=== PATIENT | female | born 1955 | race African-American/Black ===

== ENCOUNTER 2021-09-17 14:44 | Emergency (ER) | payer MEDICARE ==
[~2021-09-17] VITALS: Ht 167.6 cm; Wt 136.0 kg
[2021-09-17 14:50] VITALS: BP 142/70
[2021-09-17 15:51] LABS: BASOPHILS % 0.8 % (0.0-2.0); EOSINOPHILS % 1.2 % (0.0-5.0); HEMATOCRIT. 39.9 % (36.0-48.0); HEMOGLOBIN. 12.9 g/dL (12.0-16.0); LYMPHOCYTES % 15.7 % (20.0-50.0); MEAN CORPUSCULAR VOLUME 83.4 fL (81.0-99.0); MEAN PLATELET VOLUME 8.4 fl (7.4-10.4); MONOCYTES % 7.2 % (2.0-8.0); NEUTROPHILS % 75.1 % (40.0-76.0); PLATELET 334 x1000/uL (130-400); RED BLOOD CELL COUNT 4.79 mill/uL (4.2-5.4); RED CELL DISTRIBUTION WIDTH 15.4 % (11.6-14.6)
[2021-09-17 15:54] LABS: CHLORIDE 105 mEq/L (98-107)
== END 2021-09-17 17:54 | disposition home or self-care (01) ==
LOC: ER 14:44
DX: R55 Syncope and collapse (principal); E11.65 Type 2 diabetes mellitus with hyperglycemia; I10 Essential (primary) hypertension; I44.0 Atrioventricular block, first degree
CPT/HCPCS: 36415; 71045; 80053; 83880; 84484; 85025; 99284; 99291

== ENCOUNTER 2024-03-18 20:56 | Inpatient (IN) | payer MEDICARE, MEDICAID ==
[~2024-03-18] VITALS: Ht 170.2 cm; Wt 167.8 kg
[~2024-03-18 20:56] MED LIST: CEL200 PO
[2024-03-18] MEDS ORDERED: CEFTRIAXONE 1GM/50ML 50 ML IV ONE (22:00)
[2024-03-18 22:49] LABS: BASOPHILS % 0.7 % (0.0-2.0); EOSINOPHILS % 0.8 % (0.0-5.0); HEMATOCRIT. 33.5 % (36.0-48.0); HEMOGLOBIN. 10.6 g/dL (12.0-16.0); LYMPHOCYTES % 9.9 % (20.0-50.0); MEAN CORPUSCULAR HEMOGLOBIN 26.2 pg (28.0-32.0); MEAN CORPUSCULAR HGB CONC 31.6 g/dL (31.0-37.0); MEAN CORPUSCULAR VOLUME 82.9 fL (81.0-99.0); MEAN PLATELET VOLUME 7.3 fl (7.4-10.4); MONOCYTES % 5.2 % (2.0-8.0); NEUTROPHILS % 83.4 % (40.0-76.0); PLATELET 501 x1000/uL (130-400); RED BLOOD CELL COUNT 4.04 mill/uL (4.2-5.4); RED CELL DISTRIBUTION WIDTH 16.8 % (11.6-14.6); WHITE BLOOD COUNT 18.3 x1000/uL (4.5-11.0)
[2024-03-18] MEDS: CEFTRIAXONE 1GM/50ML 50 ML IV NR (22:49)
[2024-03-18] MEDS: SODIUM CHLORIDE 0.9% 1,000 ML IV ONE (22:50)
[2024-03-18 22:52] LABS: CHLORIDE 105 mEq/L (98-107); POTASSIUM 4.7 mEq/L (3.5-5.1); SODIUM 137 mEq/L (136-145)
[2024-03-18 22:53] LABS: CARBON DIOXIDE 18 mEq/L (21-32)
[2024-03-18 22:58] LABS: CREATININE 1.1 mg/dL (0.6-1.0); GLUCOSE 103 mg/dL (70-105); UREA NITROGEN BLOOD 33 mg/dL (9-23)
[2024-03-18 23:00] LABS: ALANINE AMINOTRANSFERASE < 7 IU/L (10-49); ALBUMIN 3.1 g/dL (3.2-4.8); ASPARTATE AMINOTRANSFERASE 10 IU/L (<34)
[2024-03-18 23:01] LABS: BILIRUBIN DIRECT 0.1 mg/dL (<=3.0); BILIRUBIN TOTAL 0.3 mg/dL (0.1-1.0); PROTEIN TOTAL 7.6 g/dL (6.0-8.3); TROPONIN I HIGH SENSITIVITY < 4 ng/L (3.0-34)
[2024-03-18] MEDS: VANCOMYCIN 1000MG/250ML 250 ML IV SCH (23:35)
[2024-03-19] VITALS (52 sets, daily range): BP systolic 46–121; BP diastolic 25–87; PULSE 63–111; RESP 15–26; TEMP 34.725–36.9474; O2SAT 95–100
[2024-03-19] MEDS: SODIUM CHLORIDE 0.9% 500 ML IV ONE (00:13)
[2024-03-19] MEDS: SODIUM CHLORIDE 0.9% 1,000 ML IV ONE ×2 (00:13→03:05)
[2024-03-19 00:48] LABS: INR 1.1; PROTHROMBIN TIME 11.8 sec (9.6-11.0)
[2024-03-19] MEDS ORDERED: ACETAMINOPHEN 325MG TABLET PO PRN ×2 (03:00)
[2024-03-19] MEDS ORDERED: DOCUSATE SODIUM 100MG CAPSULE PO PRN (03:00)
[2024-03-19] MEDS ORDERED: MAGNESIUM/ALUMINUM HYDROXIDE/SIMETHICONE 30ML UDC PO PRN (03:00)
[2024-03-19] MEDS: MIDODRINE HCL 5MG TABLET PO SCH ×2 (03:05→17:28)
[2024-03-19] MEDS: MIDODRINE HCL 5MG TABLET PO NR (03:51)
[2024-03-19] MEDS: LEVOTHYROXINE SODIUM 88MCG TABLET PO SCH (07:10)
[2024-03-19] MEDS: NOREPINEPHRINE 8MG/250ML PMX 250 ML IV PRN (07:47)
[2024-03-19] MEDS: IPRATROPIUM/ALBUTEROL 0.5-3(2.5)MG/3ML NEB NEB SCH (08:00)
[2024-03-19] MEDS ORDERED: ATROPINE SULFATE 1MG/ML VIAL IV PRN (09:00)
[2024-03-19] MEDS: PANTOPRAZOLE SODIUM 40 MG/VIAL IV SCH (09:01)
[2024-03-19] MEDS: ENOXAPARIN 40MG/0.4ML SYR SUBCUT SCH (09:02)
[2024-03-19 09:51] LABS: HEMATOCRIT 34.7 % (36.0-48.0); HEMOGLOBIN 10.3 g/dL (12.0-16.0); MEAN CORPUSCULAR HEMOGLOBIN 25.8 pg (28.0-32.0); MEAN CORPUSCULAR HGB CONC 29.7 g/dL (31.0-37.0); MEAN CORPUSCULAR VOLUME 86.9 fL (81.0-99.0); PLATELET 548 x1000/uL (130-400); RED CELL DISTRIBUTION WIDTH 17.5 % (11.6-14.6); WHITE BLOOD COUNT 28.4 x1000/uL (4.5-11.0)
[2024-03-19 10:02] LABS: CHLORIDE 107 mEq/L (98-107); POTASSIUM 4.1 mEq/L (3.5-5.1); SODIUM 137 mEq/L (136-145)
[2024-03-19 10:03] LABS: CARBON DIOXIDE 13 mEq/L (21-32)
[2024-03-19 10:04] LABS: CALCIUM 8.8 mg/dL (8.7-10.4)
[2024-03-19 10:08] LABS: CREATININE 0.9 mg/dL (0.6-1.0); GLUCOSE 150 mg/dL (70-105); UREA NITROGEN BLOOD 27 mg/dL (9-23)
[2024-03-19] MEDS ORDERED: NALOXONE HCL 0.4MG/ML VIAL IV PRN (17:00)
[2024-03-19] MEDS: TRAMADOL 50MG TABLET PO PRN (17:32)
[2024-03-19] MEDS ORDERED: FURO-151 PO (21:59)
[2024-03-19] MEDS ORDERED: LEVO88TA7 PO (21:59)
[2024-03-19] MEDS ORDERED: METO25TA6 PO (21:59)
[2024-03-19] MEDS ORDERED: ERGO1250 PO (21:59)
[2024-03-19] MEDS ORDERED: CLOP75TA33 PO (21:59)
[2024-03-19] MEDS ORDERED: METF-414 PO (21:59)
[2024-03-19] MEDS ORDERED: CELE-116 PO (21:59)
[2024-03-19] MEDS ORDERED: SIMV-46 PO (21:59)
[2024-03-19] MEDS ORDERED: POLY510P31 PO (21:59)
[2024-03-19] MEDS ORDERED: D-ME473S50 PO (21:59)
[2024-03-19] MEDS ORDERED: LISI2.5T47 PO (21:59)
[2024-03-19] MEDS ORDERED: ASPI-1160 PO (21:59)
[2024-03-19] MEDS ORDERED: METH4TAB95 PO (21:59)
[2024-03-19] MEDS ORDERED: MELO-106 PO (21:59)
[2024-03-19] MEDS ORDERED: HYDR25TA PO (21:59)
[2024-03-19] MEDS ORDERED: SERT25TA74 PO (21:59)
[2024-03-19] MEDS ORDERED: POTA-204 PO (21:59)
[2024-03-19] MEDS: ONDANSETRON HCL 4MG/2ML INJ IV PRN (23:16)
[2024-03-19] MEDS: NOREPINEPHRINE 32 MG in DEXT 5% WATER 218 ML IV PRN (23:17)
[2024-03-20] VITALS (113 sets, daily range): BP systolic 53–124; BP diastolic 26–86; PULSE 86–147; RESP 18–33; TEMP 36.114–37.16964; O2SAT 87–100
[2024-03-20] MEDS: ACETYLCYSTEINE 200MG/ML 20% VIAL 4ML INH SCH (00:55)
[2024-03-20] MEDS: PIPERACILLIN/TAZO 3.375G/50ML 50 ML IV SCH (05:05)
[2024-03-20] MEDS: MORPHINE SULFATE 2 MG/ML INJ (NOT FOR IM USE) IV NR (05:39)
[2024-03-20 06:42] LABS: CHLORIDE 109 mEq/L (98-107); POTASSIUM 5.2 mEq/L (3.5-5.1); SODIUM 137 mEq/L (136-145)
[2024-03-20 06:43] LABS: CALCIUM 8.3 mg/dL (8.7-10.4)
[2024-03-20 06:48] LABS: CREATININE 1.2 mg/dL (0.6-1.0); GLUCOSE 152 mg/dL (70-105); IRON 61 ug/dL (50-170); TRIGLYCERIDE 129 mg/dL (0-150); UREA NITROGEN BLOOD 30 mg/dL (9-23)
[2024-03-20 06:49] LABS: LDL CHOLESTEROL 80 mg/dL (5-100)
[2024-03-20 06:50] LABS: CHOLESTEROL 137 mg/dL (<200); HDL CHOLESTEROL 32 mg/dL (>65); PHOSPHORUS 4.3 mg/dL (2.5-4.9)
[2024-03-20 06:51] LABS: TOTAL IRON BINDING CAPACITY 136 ug/dl (250-425)
[2024-03-20 06:53] LABS: T4 FREE 1.52 ng/dL (0.89-1.76); THYROID STIMULATING HORMONE 0.15 uIU/mL (0.55-4.78)
[2024-03-20 07:06] LABS: CARBON DIOXIDE < 10 mEq/L (21-32)
[2024-03-20] MEDS ORDERED: LIDOCAINE HCL 1% 10 MG/ML 10ML VIAL ONE (07:52)
[2024-03-20] MEDS: LACTATED RINGERS 1,000 ML IV SCH (08:00)
[2024-03-20] MEDS ORDERED: MEROPENEM 1,000 MG in SODIUM CHLORIDE 0.9% 100 ML IV SCH (08:00)
[2024-03-20 08:37] LABS: BG BASE EXCESS -14.3 mmol/L (-2.0-3.0); BG CARBOXYHEMOGLOBIN 1.6 % (0.5-1.5); BG DEOXYHEMOGLOBIN 8.7 % (0.0-5.0); BG FRACTION INSPIRED OXYGEN 21; BG HCO3 ACT 12.1 mmol/L (21.0-28.0); BG METHEMOGLOBIN 0.1 % (0.5-1.5); BG OXYGEN SATURATION 91.1 % (94.0-98.0); BG OXYHEMOGLOBIN 89.6 % (94.0-98.0); BG PCO2 29.8 mmHg (32.0-45.0); BG PH 7.225 (7.350-7.450); BG PO2 68.2 mmHg (83.0-108.0); BG SAMPLE SITE RIGHT BRACHIAL; BG TOTAL HEMOGLOBIN 10.4 g/dL (12.0-16.0); BG VENT MODE ROOM AIR
[2024-03-20] MEDS: SODIUM ZIRCONIUM CYCLOSILICATE 10GM/PACKET PO NR (09:18)
[2024-03-20] MEDS: SODIUM BICARBONATE 8.4% 50MEQ/50ML SYR IV NR (09:18)
[2024-03-20] MEDS: MAGNESIUM 2 G PREMIX 50 ML IV NR (09:19)
[2024-03-20] MEDS: MEROPENEM 1GM/50ML DUPLEX 50 ML IV SCH (10:45)
[2024-03-20] MEDS: TRAMADOL 50MG TABLET PO PRN (17:07)
[2024-03-20] MEDS ORDERED: PHENYLEPHRINE 50 MG in DEXT 5% WATER 245 ML IV PRN (18:00)
[2024-03-20] MEDS: CLOPIDOGREL 75MG TABLET PO SCH (18:15)
[2024-03-20] MEDS ORDERED: PHENYLEPHRINE 50MG/250ML PMX IV PRN (18:15)
[2024-03-20] MEDS: ASPIRIN 81MG TABLET PO SCH (18:15)
[2024-03-20 18:46] LABS: BG BASE EXCESS -11.9 mmol/L (-2.0-3.0); BG DEOXYHEMOGLOBIN 6.3 % (0.0-5.0); BG FRACTION INSPIRED OXYGEN 35; BG HCO3 ACT 13.3 mmol/L (21.0-28.0); BG METHEMOGLOBIN 0.2 % (0.5-1.5); BG OXYGEN SATURATION 93.6 % (94.0-98.0); BG OXYHEMOGLOBIN 92.5 % (94.0-98.0); BG PH 7.294 (7.350-7.450); BG PO2 78.3 mmHg (83.0-108.0); BG SAMPLE SITE RIGHT RADIAL; BG TOTAL HEMOGLOBIN 10.6 g/dL (12.0-16.0); BG VENT MODE MASK - VENTI
[2024-03-20] MEDS: MORPHINE SULFATE 2 MG/ML INJ (NOT FOR IM USE) IV PRN (20:00)
[2024-03-20] MEDS: MORPHINE SULFATE 4 MG/ML INJ (FOR IV/IM USE) IM NR (20:24)
[2024-03-20] MEDS: ENOXAPARIN 40MG/0.4ML SYR SUBCUT SCH (20:24)
[2024-03-20] MEDS: PHENYLEPHRINE 50 MG in DEXTROSE 5% WATER 250 ML IV PRN (21:09)
[2024-03-20] MEDS: METHYLPREDNISOLONE SOD SUCC 125MG/2ML (ACT-O-VIAL) IV SCH (22:01)
[2024-03-20 22:09] LABS: HEMATOCRIT. 30.4 % (36.0-48.0); HEMOGLOBIN. 9.6 g/dL (12.0-16.0); MEAN CORPUSCULAR HEMOGLOBIN 26.3 pg (28.0-32.0); MEAN CORPUSCULAR HGB CONC 31.7 g/dL (31.0-37.0); PLATELET 395 x1000/uL (130-400); RED BLOOD CELL COUNT 3.66 mill/uL (4.2-5.4); RED CELL DISTRIBUTION WIDTH 17.2 % (11.6-14.6); WHITE BLOOD COUNT 19.6 x1000/uL (4.5-11.0)
[2024-03-20 22:10] LABS: DIFFERENTIAL COMMENT 1
[2024-03-20 22:22] LABS: CHLORIDE 106 mEq/L (98-107); POTASSIUM 3.3 mEq/L (3.5-5.1); SODIUM 134 mEq/L (136-145)
[2024-03-20 22:23] LABS: CALCIUM 8.6 mg/dL (8.7-10.4); CARBON DIOXIDE 17 mEq/L (21-32)
[2024-03-20 22:28] LABS: CREATININE 1.1 mg/dL (0.6-1.0); GLUCOSE 172 mg/dL (70-105); UREA NITROGEN BLOOD 23 mg/dL (9-23)
[2024-03-20 22:29] LABS: FOLIC ACID (FOLATE) SERUM 4.98 ng/mL (>5.38); VITAMIN B12 SERUM 1507 pg/mL (211-911)
[2024-03-20 22:35] LABS: LACTIC ACID 3.7 mmol/L (0.4-2.0)
[2024-03-20 22:36] LABS: TROPONIN I HIGH SENSITIVITY 6309 ng/L (3.0-34)
[2024-03-20 22:43] LABS: ANISOCYTOSIS 1+; PLATELET ESTIMATE NORMAL
[2024-03-20] MEDS: PHENYLEPHRINE 100 MG in DEXT 5% WATER 240 ML IV PRN (23:32)
[2024-03-21] VITALS (122 sets, daily range): BP systolic 43–155; BP diastolic 11–101; PULSE 117–161; RESP 14–29; TEMP 36.33624–37.00296; O2SAT 66–100
[2024-03-21 04:33] LABS: HEMATOCRIT. 32.4 % (36.0-48.0); HEMOGLOBIN. 10.4 g/dL (12.0-16.0); MEAN CORPUSCULAR VOLUME 84.3 fL (81.0-99.0); MEAN PLATELET VOLUME 7.4 fl (7.4-10.4); PLATELET 374 x1000/uL (130-400); RED BLOOD CELL COUNT 3.85 mill/uL (4.2-5.4); RED CELL DISTRIBUTION WIDTH 17.4 % (11.6-14.6); WHITE BLOOD COUNT 24.1 x1000/uL (4.5-11.0)
[2024-03-21 04:38] LABS: CHLORIDE 104 mEq/L (98-107); POTASSIUM 4.8 mEq/L (3.5-5.1); SODIUM 132 mEq/L (136-145)
[2024-03-21 04:39] LABS: CARBON DIOXIDE 14 mEq/L (21-32)
[2024-03-21 04:40] LABS: CALCIUM 8.3 mg/dL (8.7-10.4)
[2024-03-21 04:44] LABS: CREATININE 1.1 mg/dL (0.6-1.0); GLUCOSE 240 mg/dL (70-105)
[2024-03-21 04:45] LABS: UREA NITROGEN BLOOD 19 mg/dL (9-23)
[2024-03-21 04:47] LABS: PHOSPHORUS 3.3 mg/dL (2.5-4.9)
[2024-03-21 05:22] LABS: DIFFERENTIAL COMMENT 1
[2024-03-21] MEDS: SODIUM BICARBONATE 8.4% 50MEQ/50ML SYR IV NR ×2 (06:39→22:25)
[2024-03-21 06:52] LABS: BG BASE EXCESS -6.8 mmol/L (-2.0-3.0); BG CARBOXYHEMOGLOBIN 0.4 % (0.5-1.5); BG HCO3 ACT 17.9 mmol/L (21.0-28.0); BG METHEMOGLOBIN 0.2 % (0.5-1.5); BG OXYHEMOGLOBIN 92.4 % (94.0-98.0); BG PH 7.353 (7.350-7.450); BG PO2 71.3 mmHg (83.0-108.0); BG SAMPLE SITE LEFT RADIAL; BG TOTAL HEMOGLOBIN 10.7 g/dL (12.0-16.0)
[2024-03-21] MEDS ORDERED: SODIUM BICARBONATE 100 MEQ in SODIUM CHLORIDE 0.45% 900 ML IV SCH (07:30)
[2024-03-21] MEDS ORDERED: DEXTROSE 50% WATER 50ML SYRINGE IV PRN (08:15)
[2024-03-21] MEDS: INSULIN LISPRO 100 UNITS/ML SUBCUT SCH (08:20)
[2024-03-21] MEDS: AMIODARONE 150MG/100ML D5W 100 ML IV NR (09:43)
[2024-03-21] MEDS ORDERED: MORPHINE SULFATE 2 MG/ML INJ (NOT FOR IM USE) IV PRN (10:00)
[2024-03-21] MEDS: AMIODARONE HCL 900 MG in DEXT 5% WATER 482 ML IV SCH (10:33)
[2024-03-21] MEDS: ENOXAPARIN 150MG/ML SYR SUBCUT SCH (11:08)
[2024-03-21] MEDS: FOLIC ACID 1MG TABLET PO SCH (11:08)
[2024-03-21] MEDS: VANCOMYCIN 1G PREMIX 200 ML IV SCH (11:09)
[2024-03-21 11:13] LABS: CREATINE KINASE 137 IU/L (34-145); LACTIC ACID 3.3 mmol/L (0.4-2.0)
[2024-03-21 11:16] LABS: TROPONIN I HIGH SENSITIVITY 4045 ng/L (3.0-34)
[2024-03-21 11:28] LABS: BG CARBOXYHEMOGLOBIN 0.5 % (0.5-1.5); BG DEOXYHEMOGLOBIN 1.6 % (0.0-5.0); BG FRACTION INSPIRED OXYGEN 100; BG HCO3 ACT 16.3 mmol/L (21.0-28.0); BG METHEMOGLOBIN 0.2 % (0.5-1.5); BG OXYGEN SATURATION 98.4 % (94.0-98.0); BG OXYHEMOGLOBIN 97.7 % (94.0-98.0); BG PCO2 37.2 mmHg (32.0-45.0); BG PH 7.259 (7.350-7.450); BG PO2 148.7 mmHg (83.0-108.0); BG SAMPLE SITE LEFT RADIAL; BG TOTAL HEMOGLOBIN 11.3 g/dL (12.0-16.0); BG TOTAL RESPIRATORY RATE 18 b/min; BG VENT MODE VENT - AC
[2024-03-21] MEDS: DEXT 5%/0.9% NACL 1,000 ML IV SCH (12:48)
[2024-03-21] MEDS: BLOOD SUGAR DIAGNOSTIC STRIP TEST SCH (12:51)
[2024-03-21 13:29] LABS: CLARITY URINE CLOUDY (CLEAR); COLOR URINE YELLOW (YELLOW); GLUCOSE URINE NEGATIVE (NEGATIVE); KETONES URINE NEGATIVE (NEGATIVE); LEUKOCYTE ESTERASE URINE 1+ (NEGATIVE); NITRITE URINE NEGATIVE (NEGATIVE); OCCULT BLOOD URINE TRACE (NEGATIVE); PH URINE 5.5 (4.5-8.0); PROTEIN URINE 2+ (NEGATIVE); SPECIFIC GRAVITY URINE 1.019 (1.005-1.030)
[2024-03-21 13:38] LABS: ANISOCYTOSIS 1+; NUCLEATED RED BLOOD CELLS 1 /100 WBC; PLATELET ESTIMATE NORMAL
[2024-03-21 14:18] LABS: BACTERIA URINE 4+; CALCIUM OXALATE CRYSTALS URINE 1+ /lpf; SQUAMOUS EPITHELIAL CELL URINE FEW /lpf (RARE/1+)
[2024-03-21 14:19] LABS: RBC URINE 0-2 /hpf (0-2)
[2024-03-21] MEDS: PROPOFOL 10MG/ML 100ML 100 ML IV PRN (17:04)
[2024-03-21 17:31] LABS: TROPONIN I HIGH SENSITIVITY 3546 ng/L (3.0-34)
[2024-03-21] MEDS: VASOPRESSIN 20 UNIT in SODIUM CHLORIDE 0.9% 99 ML IV PRN (19:38)
[2024-03-21] MEDS: ATORVASTATIN CALCIUM 40MG TABLET PO SCH (20:28)
[2024-03-21 21:34] LABS: BG CARBOXYHEMOGLOBIN 1.2 % (0.5-1.5); BG DEOXYHEMOGLOBIN 9.7 % (0.0-5.0); BG FRACTION INSPIRED OXYGEN 100; BG HCO3 ACT 9.7 mmol/L (21.0-28.0); BG METHEMOGLOBIN 0.2 % (0.5-1.5); BG OXYGEN SATURATION 90.2 % (94.0-98.0); BG OXYHEMOGLOBIN 88.9 % (94.0-98.0); BG PCO2 33.7 mmHg (32.0-45.0); BG PH 7.077 (7.350-7.450); BG PO2 71.2 mmHg (83.0-108.0); BG SAMPLE SITE ALINE; BG TOTAL HEMOGLOBIN 8.9 g/dL (12.0-16.0); BG VENT MODE VENT - AC
[2024-03-21] MEDS: SODIUM BICARBONATE 150 MEQ in DEXTROSE 5% WATER 850 ML IV SCH (22:38)
[2024-03-21] MEDS ORDERED: SODIUM BICARBONATE 150 MEQ in DEXTROSE 5% WATER 850 ML IV SCH (22:45)
[2024-03-21 22:48] LABS: TROPONIN I HIGH SENSITIVITY 3998 ng/L (3.0-34)
[2024-03-21] MEDS: MIDAZOLAM 100MG/100ML PMX 100 ML IV PRN (23:33)
[2024-03-22] VITALS (101 sets, daily range): BP systolic 43–97; BP diastolic 24–75; PULSE 118–139; RESP 0–30; TEMP 36.61404–38.55864; O2SAT 0–100
[2024-03-22 00:55] LABS: TROPONIN I HIGH SENSITIVITY 4261 ng/L (3.0-34)
[2024-03-22 02:17] LABS: BG BASE EXCESS -14.8 mmol/L (-2.0-3.0); BG CARBOXYHEMOGLOBIN 1.4 % (0.5-1.5); BG DEOXYHEMOGLOBIN 11.7 % (0.0-5.0); BG FRACTION INSPIRED OXYGEN 100; BG HCO3 ACT 11.2 mmol/L (21.0-28.0); BG METHEMOGLOBIN 0.2 % (0.5-1.5); BG OXYGEN SATURATION 88.1 % (94.0-98.0); BG OXYHEMOGLOBIN 86.7 % (94.0-98.0); BG PCO2 27.1 mmHg (32.0-45.0); BG PH 7.235 (7.350-7.450); BG PO2 59.6 mmHg (83.0-108.0); BG SAMPLE SITE ALINE; BG VENT MODE VENT - AC
[2024-03-22] MEDS ORDERED: FENTANYL 2500MCG/250ML PMX 250 ML IV PRN (02:30)
[2024-03-22 05:16] LABS: BG BASE EXCESS -14.3 mmol/L (-2.0-3.0); BG HCO3 ACT 11.9 mmol/L (21.0-28.0); BG PCO2 29.7 mmHg (32.0-45.0); BG PH 7.221 (7.350-7.450); BG PO2 58.5 mmHg (83.0-108.0); BG SAMPLE SITE ALINE
[2024-03-22] MEDS: FENTANYL CITRATE/PF 50MCG/ML 2ML VIAL IV NR (05:38)
[2024-03-22] MEDS: FENTANYL CITRATE 2,500 MCG in SODIUM CHLORIDE 0.9% 200 ML IV PRN (05:53)
[2024-03-22] MEDS: MIDAZOLAM HCL 5 MG/5 ML VIAL IV NR (05:59)
[2024-03-22 06:15] LABS: BASOPHILS % 0.2 % (0.0-2.0); HEMOGLOBIN. 9.5 g/dL (12.0-16.0); LYMPHOCYTES % 7.5 % (20.0-50.0); MEAN CORPUSCULAR HEMOGLOBIN 26.5 pg (28.0-32.0); MEAN CORPUSCULAR HGB CONC 31.5 g/dL (31.0-37.0); MEAN CORPUSCULAR VOLUME 84.1 fL (81.0-99.0); MEAN PLATELET VOLUME 7.7 fl (7.4-10.4); MONOCYTES % 4.4 % (2.0-8.0); NEUTROPHILS % 87.9 % (40.0-76.0); PLATELET 251 x1000/uL (130-400); RED BLOOD CELL COUNT 3.57 mill/uL (4.2-5.4); RED CELL DISTRIBUTION WIDTH 17.6 % (11.6-14.6)
[2024-03-22 06:27] LABS: CARBON DIOXIDE 15 mEq/L (21-32); CHLORIDE 100 mEq/L (98-107); SODIUM 129 mEq/L (136-145)
[2024-03-22 06:28] LABS: CALCIUM 7.2 mg/dL (8.7-10.4)
[2024-03-22 06:33] LABS: GLUCOSE 389 mg/dL (70-105); UREA NITROGEN BLOOD 25 mg/dL (9-23)
[2024-03-22 06:35] LABS: PHOSPHORUS 3.6 mg/dL (2.5-4.9)
[2024-03-22 06:41] LABS: LACTIC ACID 6.1 mmol/L (0.4-2.0)
[2024-03-22 06:44] LABS: CREATININE 1.6 mg/dL (0.6-1.0)
[2024-03-22 07:04] LABS: DIFFERENTIAL COMMENT 1
[2024-03-22 07:54] LABS: TROPONIN I HIGH SENSITIVITY 3949 ng/L (3.0-34)
[2024-03-22] MEDS: MAGNESIUM 2 G PREMIX 50 ML IV NR (08:27)
[2024-03-22 08:37] LABS: BG BASE EXCESS -13.2 mmol/L (-2.0-3.0); BG CARBOXYHEMOGLOBIN 0.8 % (0.5-1.5); BG DEOXYHEMOGLOBIN 5.8 % (0.0-5.0); BG FRACTION INSPIRED OXYGEN 100; BG HCO3 ACT 13.8 mmol/L (21.0-28.0); BG METHEMOGLOBIN 0.2 % (0.5-1.5); BG OXYGEN SATURATION 94.1 % (94.0-98.0); BG OXYHEMOGLOBIN 93.2 % (94.0-98.0); BG PH 7.202 (7.350-7.450); BG PO2 80.2 mmHg (83.0-108.0); BG SAMPLE SITE ALINE; BG TOTAL HEMOGLOBIN 9.7 g/dL (12.0-16.0); BG TOTAL RESPIRATORY RATE 22 b/min; BG VENT MODE VENT - AC
[2024-03-22] MEDS: HYDROCORTISONE SOD SUCCINATE 100 MG/2 ML VIAL IV SCH (10:02)
[2024-03-22 10:16] LABS: BG BASE EXCESS -11.8 mmol/L (-2.0-3.0); BG FRACTION INSPIRED OXYGEN 100; BG HCO3 ACT 15.8 mmol/L (21.0-28.0); BG METHEMOGLOBIN 0.2 % (0.5-1.5); BG OXYGEN SATURATION 90.9 % (94.0-98.0); BG OXYHEMOGLOBIN 89.8 % (94.0-98.0); BG PCO2 42.3 mmHg (32.0-45.0); BG PH 7.189 (7.350-7.450); BG SAMPLE SITE ALINE; BG TOTAL HEMOGLOBIN 10.5 g/dL (12.0-16.0); BG VENT MODE VENT - P/C
[2024-03-22] MEDS: EPINEPHRINE 10 MG in SODIUM CHLORIDE 0.9% 240 ML IV PRN (10:27)
[2024-03-22] MEDS: SODIUM BICARBONATE 8.4% 50MEQ/50ML SYR IV NR (11:08)
[2024-03-22] MEDS: ACETAMINOPHEN 650MG/20.3ML UDC PO PRN (13:20)
[2024-03-22] MEDS: EPINEPHRINE 20 MG in SODIUM CHLORIDE 0.9% 480 ML IV PRN (14:46)
[2024-03-22] MEDS ORDERED: DOXYCYCLINE HYCLATE 100 MG/VIAL IV ONE (16:45)
[2024-03-22] MEDS: MEROPENEM 1GM/50ML DUPLEX 50 ML IV SCH (17:24)
[2024-03-22] MEDS: DOXYCYCLINE 100MG/100ML 100 ML IV SCH (18:43)
[2024-03-22] MEDS: DOPAMINE 800MG PREMIX (DOUBLE) 250 ML IV PRN (22:40)
[2024-03-23] VITALS (102 sets, daily range): BP systolic 37–55; BP diastolic 14–30; PULSE 73–125; RESP 6–56; TEMP 36.44736–37.7808; O2SAT 59–100
[2024-03-23] MEDS: SODIUM BICARBONATE 150 MEQ in DEXTROSE 5% WATER 850 ML IV SCH (09:05)
[2024-03-23] MEDS ORDERED: SODIUM BICARBONATE 8.4% 50MEQ/50ML SYR IV NR (11:00)
[2024-03-23] MEDS ORDERED: FENTANYL 2500MCG/250ML PMX 250 ML IV ONE (11:30)
[2024-03-23 14:08] LABS: *CREATININE RANDOM URINE 86.8 mg/dL (Not Estab.); MICROALBUMIN RANDOM URINE 130.6 ug/mL (Not Estab.)
[2024-03-23] MEDS: DOXYCYCLINE 100MG/100ML 100 ML IV SCH (14:16)
[2024-03-23 14:50] LABS: MEAN CORPUSCULAR HEMOGLOBIN 25.8 pg (28.0-32.0); MEAN CORPUSCULAR HGB CONC 29.4 g/dL (31.0-37.0); MEAN CORPUSCULAR VOLUME 87.9 fL (81.0-99.0); PLATELET 80 x1000/uL (130-400); RED BLOOD CELL COUNT 1.83 mill/uL (4.2-5.4); WHITE BLOOD COUNT 22.6 x1000/uL (4.5-11.0)
[2024-03-23 14:54] LABS: HEMATOCRIT 16.1 % (36.0-48.0); HEMOGLOBIN 4.7 g/dL (12.0-16.0)
[2024-03-24] VITALS (99 sets, daily range): BP systolic 27–72; BP diastolic 13–24; PULSE 0–146; RESP 0–36; TEMP 36.61404; O2SAT 84–98
[2024-03-24] MEDS: IPRATROPIUM/ALBUTEROL 0.5-3(2.5)MG/3ML NEB HHN PRN (12:57)
[2024-03-25] VITALS (62 sets, daily range): PULSE 0–93; RESP 25–29; TEMP 33.50268–36.05844
== END 2024-03-25 13:39 | DRG 870 ==
LOC: ER 20:56 → MICUSO 23:58 → EDBEDREQTM 03-19 00:05 → EDBEDREQ 03-19 00:05 → EDBEDREQSVC 03-19 05:41 → CVICU 03-19 14:10
PROVIDERS: ADMIT Hospitalist; ATTEND Hospitalist
PROC: 5A09357 Assistance with Respiratory Ventilation, Less than 24 Consecutive Hours, Continuous Positive Airway Pressure (ICD-10-PCS; 2024-03-20)
PROC: 05HY33Z Insertion of Infusion Device into Upper Vein, Percutaneous Approach (ICD-10-PCS; 2024-03-20)
PROC: B54MZZA Ultrasonography of Right Upper Extremity Veins, Guidance (ICD-10-PCS; 2024-03-20)
PROC: 5A1955Z Respiratory Ventilation, Greater than 96 Consecutive Hours (ICD-10-PCS; principal; 2024-03-21)
PROC: 0BH17EZ Insertion of Endotracheal Airway into Trachea, Via Natural or Artificial Opening (ICD-10-PCS; 2024-03-21)
PROC: 03HY32Z Insertion of Monitoring Device into Upper Artery, Percutaneous Approach (ICD-10-PCS; 2024-03-21)
DX: A41.9 Sepsis, unspecified organism (principal); G93.41 Metabolic encephalopathy; L89.323 Pressure ulcer of left buttock, stage 3; I21.A1 Myocardial infarction type 2; R65.21 Severe sepsis with septic shock; N17.0 Acute kidney failure with tubular necrosis; J69.0 Pneumonitis due to inhalation of food and vomit; J80 Acute respiratory distress syndrome; E87.20 Acidosis, unspecified; E44.1 Mild protein-calorie malnutrition; I47.20 Ventricular tachycardia, unspecified; E87.1 Hypo-osmolality and hyponatremia; J44.0 Chronic obstructive pulmonary disease with (acute) lower respiratory infection; Z68.42 Body mass index [BMI] 45.0-49.9, adult; N13.8 Other obstructive and reflux uropathy; D62 Acute posthemorrhagic anemia; L89.109 Pressure ulcer of unspecified part of back, unspecified stage; Z20.822 Contact with and (suspected) exposure to COVID-19; I50.9 Heart failure, unspecified; I11.0 Hypertensive heart disease with heart failure; E11.9 Type 2 diabetes mellitus without complications; E03.9 Hypothyroidism, unspecified; E83.42 Hypomagnesemia; E87.5 Hyperkalemia; E05.90 Thyrotoxicosis, unspecified without thyrotoxic crisis or storm; Z66 Do not resuscitate; R62.7 Adult failure to thrive; E88.810 Metabolic syndrome; E66.01 Morbid (severe) obesity due to excess calories; K52.9 Noninfective gastroenteritis and colitis, unspecified; L89.120 Pressure ulcer of left upper back, unstageable; N20.0 Calculus of kidney; N28.1 Cyst of kidney, acquired; D63.8 Anemia in other chronic diseases classified elsewhere; D75.838 Other thrombocytosis; E83.51 Hypocalcemia; Z74.01 Bed confinement status; Z79.84 Long term (current) use of oral hypoglycemic drugs; Z51.5 Encounter for palliative care; Z79.82 Long term (current) use of aspirin; Z86.73 Personal history of transient ischemic attack (TIA), and cerebral infarction without residual deficits; Z87.440 Personal history of urinary (tract) infections; Z87.891 Personal history of nicotine dependence
CPT/HCPCS: 31500; 31720; 36415; 36573; 36600; 71045; 76770; 80048; 80061; 80076; 80202; 81003; 82043; 82375; 82550; 82570; 82607; 82728; 82746; 82805; 82962; 83036; 83540; 83550; 83605; 83735; 83880; 84100; 84145; 84439; 84443; 84484; 85025; 85027; 86850; 86900; 87070; 87077; 87186; 87420; 87426; 87804; 93005; 93306; 93970; 94002; 94003; 94070; 94640; 94660; 94664; 99291; C1725; C1893; J0282; J0696; J1265; J1650; J1720; J1815; J2185; J2250; J2270; J2405; J2470; J2543; J2704; J2919; J3010; J3370; J3475; J3490; J7030; J7040; J7042; J7050; J7060; J7070; J7120; J7608